=== PATIENT | male | born 1955 | race Caucasian/White ===

== ENCOUNTER 2016-06-04 15:37 | Emergency (ER) | payer OTHER ==
[~2016-06-04 15:37] MED LIST: BACTRIM DS 8001 TA1 PO
[2016-06-04 16:00] VITALS: BP 134/72
== END 2016-06-04 16:01 | disposition home or self-care (01) ==
LOC: UTC 15:37
DX: S61.411D Laceration without foreign body of right hand, subsequent encounter (principal)